=== PATIENT | male | born 1990 | race Caucasian/White ===

== ENCOUNTER 2024-03-01 18:12 | Emergency (ER) | payer OTHER ==
[~2024-03-01] VITALS: Ht 167.6 cm; Wt 79.4 kg
[~2024-03-01 18:12] MED LIST: CLOT24CR TP; OSEL75CA PO
[2024-03-01 18:33] VITALS: BP_SYST 142; PULSE 98; RESP 18; TEMP 98.4; O2SAT 96
[2024-03-01 19:32] VITALS: BP_SYST 142; PULSE 98; RESP 18; TEMP 98.4; O2SAT 96
== END 2024-03-01 19:32 | disposition home or self-care (01) ==
LOC: SED 18:12
DX: S01.511A Laceration without foreign body of lip, initial encounter (principal); Z79.899 Other long term (current) drug therapy; W08.XXXA Fall from other furniture, initial encounter; Y93.89 Activity, other specified; Y92.89 Other specified places as the place of occurrence of the external cause; Y99.8 Other external cause status
CPT/HCPCS: 99282